=== PATIENT | male | born 1995 | race Two or more races ===

== ENCOUNTER 2020-09-01 10:14 | Emergency (ER) | payer MEDICAID ==
[~2020-09-01] VITALS: Ht 167.6 cm; Wt 70.0 kg
[2020-09-01] MEDS ORDERED: IBUPROFEN 600MG TABLET PO ONE (10:45)
[2020-09-01] MEDS ORDERED: BACITRACIN ZINC OINT UDPKT TOP ONE (10:45)
[2020-09-01] MEDS ORDERED: TETANUS, DIPHTHERIA, PERTUSSIS VAC/PF 0.5ML (>7YR OLD) IM ONE (10:45)
[2020-09-01] MEDS ORDERED: IBUP-2029 MT (11:51)
[2020-09-01 12:15] VITALS: BP 120/75
== END 2020-09-01 12:15 | disposition home or self-care (01) ==
LOC: ER 10:14
DX: S50.02XA Contusion of left elbow, initial encounter (principal); R51.9 Headache, unspecified; V49.49XA Driver injured in collision with other motor vehicles in traffic accident, initial encounter; Y93.89 Activity, other specified; Y92.89 Other specified places as the place of occurrence of the external cause; Y99.8 Other external cause status
CPT/HCPCS: 12001; 73080; 90471; 90715; 99283

== ENCOUNTER 2020-09-21 11:19 | Emergency (ER) | payer MEDICAID ==
[~2020-09-21] VITALS: Ht 177.8 cm; Wt 61.0 kg
[~2020-09-21 11:19] MED LIST: IBUP-2029 MT
[2020-09-21 11:45] VITALS: BP 122/70
== END 2020-09-21 11:46 | disposition home or self-care (01) ==
LOC: ER 11:19
DX: Z48.02 Encounter for removal of sutures (principal)
CPT/HCPCS: 99281; Z7610